=== PATIENT | male | born 1955 | race African-American/Black ===

== ENCOUNTER 2022-10-19 12:32 | Inpatient (IN) | payer BC, MEDICAID ==
[~2022-10-19] VITALS: Ht 182.9 cm; Wt 71.9 kg
[~2022-10-19 12:32] MED LIST: ACET-283 PO; ASPI-1497 PO; ATOR20TA65 PO; CALC0.253 PO; CLOP75TA33 PO; FAMO20TA8 PO; METO-385 PO; MINO2.5T2 PO; NIFE60TA64 PO
[2022-10-19] MEDS ORDERED: NITROGLYCERIN 0.4MG TABLET SL SL PRN ×2 (13:00→17:00)
[2022-10-19 13:11] LABS: BASOPHILS % 1.1 % (0.0-2.0); EOSINOPHILS % 2.8 % (0.0-5.0); HEMATOCRIT. 29.8 % (42.0-52.0); LYMPHOCYTES % 30.6 % (20.0-50.0); MEAN CORPUSCULAR HEMOGLOBIN 32.7 pg (28.0-32.0); MEAN CORPUSCULAR VOLUME 97.5 fL (80.0-94.0); MEAN PLATELET VOLUME 7.2 fl (7.4-10.4); MONOCYTES % 5.8 % (2.0-8.0); NEUTROPHILS % 59.7 % (40.0-76.0); PLATELET 216 x1000/uL (130-400); RED BLOOD CELL COUNT 3.05 mill/uL (4.7-6.1); RED CELL DISTRIBUTION WIDTH 13.6 % (11.6-14.6)
[2022-10-19 13:20] LABS: CHLORIDE 97 mEq/L (98-107)
[2022-10-19 13:22] LABS: PARTIAL THROMBOPLASTIN TIME 27.3 sec (23.4-31.0); PROTHROMBIN TIME 10.9 sec (9.6-11.0)
[2022-10-19] MEDS ORDERED: DEXTROSE 50% WATER 50ML SYRINGE IV PRN (17:00)
[2022-10-19] MEDS ORDERED: GUAIFENESIN 200MG/10ML SUGAR FREE UDC PO PRN (17:00)
[2022-10-19] MEDS ORDERED: IPRATROPIUM/ALBUTEROL 0.5-3(2.5)MG/3ML NEB HHN PRN (17:00)
[2022-10-19] MEDS ORDERED: ACETAMINOPHEN 325MG TABLET PO PRN ×2 (17:00)
[2022-10-19] MEDS ORDERED: ONDANSETRON HCL 4MG/2ML INJ IV PRN (17:00)
[2022-10-19] MEDS ORDERED: CLONIDINE 0.1MG TABLET PO PRN (17:00)
[2022-10-19] MEDS ORDERED: NALOXONE HCL 0.4MG/ML VIAL IV PRN (17:15)
[2022-10-19] MEDS ORDERED: ENOXAPARIN 30MG/0.3ML SYR SUBCUT SCH (18:00)
[2022-10-19 18:27] LABS: FOLIC ACID (FOLATE) SERUM 7.8 ng/mL (>5.38)
[2022-10-19 20:02] VITALS: BP 128/80
[2022-10-19 20:11] VITALS: BP 128/80
[2022-10-19] MEDS: FAMOTIDINE 20MG TABLET PO SCH (20:38)
[2022-10-19] MEDS: MAGNESIUM/ALUMINUM HYDROXIDE/SIMETHICONE 30ML UDC PO PRN (20:54)
[2022-10-19] MEDS: DOCUSATE SODIUM 100MG CAPSULE PO PRN (20:54)
[2022-10-19] MEDS ORDERED: HYDRALAZINE 20MG/ML VIAL IV PRN (21:15)
[2022-10-19] MEDS: CLOPIDOGREL 75MG TABLET PO SCH (21:39)
[2022-10-19] MEDS: AMLODIPINE 5MG TABLET PO SCH (21:39)
[2022-10-19] MEDS: ASPIRIN 81MG TABLET PO SCH (21:39)
[2022-10-19] MEDS: HYDROCODONE/ACETAMINOPHEN 5/325MG TABLET PO PRN (21:47)
[2022-10-20] VITALS (13 sets, daily range): BP systolic 121–152; BP diastolic 52–87
[2022-10-20 01:50] LABS: CREATINE KINASE MB FRACTION 2.9 ng/mL (0.5-3.6)
[2022-10-20 05:55] LABS: BASOPHILS % 0.8 % (0.0-2.0); EOSINOPHILS % 3.6 % (0.0-5.0); HEMATOCRIT. 26.8 % (42.0-52.0); HEMOGLOBIN. 9.2 g/dL (14.0-18.0); LYMPHOCYTES % 37.2 % (20.0-50.0); MEAN CORPUSCULAR VOLUME 95.6 fL (80.0-94.0); MEAN PLATELET VOLUME 7.3 fl (7.4-10.4); NEUTROPHILS % 51.4 % (40.0-76.0); PLATELET 193 x1000/uL (130-400); RED BLOOD CELL COUNT 2.81 mill/uL (4.7-6.1); RED CELL DISTRIBUTION WIDTH 13.5 % (11.6-14.6)
[2022-10-20 06:23] LABS: CHLORIDE 99 mEq/L (98-107)
[2022-10-20 06:37] LABS: CREATINE KINASE 549 IU/L (39-308); CREATINE KINASE MB FRACTION 2.4 ng/mL (0.5-3.6); HDL CHOLESTEROL 56 mg/dL (40-59); LDL CHOLESTEROL 112 mg/dL (5-100); PHOSPHORUS 3.9 mg/dL (2.5-4.9); T4 FREE 0.72 ng/dL (0.76-1.46)
[2022-10-20] MEDS: CLOPIDOGREL 75MG TABLET PO SCH (08:23)
[2022-10-20] MEDS: ASPIRIN 81MG TABLET PO SCH (08:24)
[2022-10-20] MEDS: AMLODIPINE 5MG TABLET PO SCH (09:00)
[2022-10-20] MEDS: ENOXAPARIN 80MG/0.8ML SYR SUBCUT SCH (10:02)
[2022-10-20] MEDS: MAGNESIUM/ALUMINUM HYDROXIDE/SIMETHICONE 30ML UDC PO PRN (10:09)
[2022-10-20] MEDS: DOCUSATE SODIUM 100MG CAPSULE PO PRN (10:09)
[2022-10-20] MEDS ORDERED: NA PHOS,M-B/NA PHOS,DI-BA ENEMA 118ML PR NR (13:45)
[2022-10-20] MEDS ORDERED: ALBUTEROL (0.083%) 2.5MG/3ML NEB HHN PRN (13:45)
[2022-10-20] MEDS ORDERED: IPRATROPIUM BROMIDE (0.02%) 0.5MG/2.5ML NEB HHN PRN (13:45)
[2022-10-20 16:19] LABS: CREATINE KINASE MB FRACTION 2.4 ng/mL (0.5-3.6)
[2022-10-20 18:08] LABS: HEPATITIS B SURFACE ANTIGEN NEGATIVE
[2022-10-20] MEDS: FAMOTIDINE 20MG TABLET PO SCH (20:18)
[2022-10-20] MEDS: ATORVASTATIN CALCIUM 20MG TABLET PO SCH (20:18)
[2022-10-20] MEDS: HYDROCODONE/ACETAMINOPHEN 5/325MG TABLET PO PRN (20:25)
[2022-10-20] MEDS ORDERED: ATORVASTATIN CALCIUM 20MG TABLET PO SCH (21:00)
[2022-10-21 00:05] VITALS: BP 150/92
[2022-10-21] MEDS: HYDROCODONE/ACETAMINOPHEN 5/325MG TABLET PO PRN ×3 (02:48→20:09)
[2022-10-21 04:00] VITALS: BP 124/81
[2022-10-21] MEDS ORDERED: EPOETIN ALFA-EPBX 10,000 UNIT/ML VIAL SUBCUT NR (04:45)
[2022-10-21] MEDS ORDERED: EPOETIN ALFA-EPBX 4,000 UNIT/ML VIAL SUBCUT NR (05:00)
[2022-10-21 06:36] LABS: BASOPHILS % 0.9 % (0.0-2.0); EOSINOPHILS % 2.9 % (0.0-5.0); HEMATOCRIT. 25.5 % (42.0-52.0); HEMOGLOBIN. 8.8 g/dL (14.0-18.0); LYMPHOCYTES % 37.1 % (20.0-50.0); MEAN CORPUSCULAR HEMOGLOBIN 32.7 pg (28.0-32.0); MEAN CORPUSCULAR VOLUME 94.6 fL (80.0-94.0); MEAN PLATELET VOLUME 7.5 fl (7.4-10.4); MONOCYTES % 7.6 % (2.0-8.0); NEUTROPHILS % 51.5 % (40.0-76.0); PLATELET 185 x1000/uL (130-400); RED CELL DISTRIBUTION WIDTH 13.5 % (11.6-14.6)
[2022-10-21 08:00] VITALS: BP 158/92
[2022-10-21] MEDS: ENOXAPARIN 80MG/0.8ML SYR SUBCUT SCH (09:04)
[2022-10-21] MEDS: ASPIRIN 81MG TABLET PO SCH (09:05)
[2022-10-21] MEDS: DOCUSATE SODIUM 100MG CAPSULE PO PRN (09:05)
[2022-10-21] MEDS: AMLODIPINE 5MG TABLET PO SCH ×2 (09:05→20:05)
[2022-10-21] MEDS: CLOPIDOGREL 75MG TABLET PO SCH (10:42)
[2022-10-21 12:00] VITALS: BP 131/86
[2022-10-21 16:00] VITALS: BP 129/87
[2022-10-21] MEDS: CYANOCOBALAMIN 1000MCG/ML VIAL IM SCH (16:07)
[2022-10-21 20:00] VITALS: BP 136/80
[2022-10-21] MEDS: ATORVASTATIN CALCIUM 20MG TABLET PO SCH (20:05)
[2022-10-21] MEDS: FAMOTIDINE 20MG TABLET PO SCH (20:05)
[2022-10-22] VITALS (9 sets, daily range): BP systolic 129–155; BP diastolic 74–85
[2022-10-22 06:25] LABS: BASOPHILS % 0.7 % (0.0-2.0); HEMATOCRIT. 27.3 % (42.0-52.0); HEMOGLOBIN. 9.3 g/dL (14.0-18.0); LYMPHOCYTES % 35.1 % (20.0-50.0); MEAN CORPUSCULAR HEMOGLOBIN 32.3 pg (28.0-32.0); MEAN CORPUSCULAR VOLUME 94.6 fL (80.0-94.0); MEAN PLATELET VOLUME 7.7 fl (7.4-10.4); MONOCYTES % 9.2 % (2.0-8.0); PLATELET 190 x1000/uL (130-400); RED BLOOD CELL COUNT 2.88 mill/uL (4.7-6.1); RED CELL DISTRIBUTION WIDTH 13.6 % (11.6-14.6)
[2022-10-22] MEDS: HYDROCODONE/ACETAMINOPHEN 5/325MG TABLET PO PRN ×3 (07:08→22:05)
[2022-10-22 07:34] LABS: CHLORIDE 102 mEq/L (98-107)
[2022-10-22 07:43] LABS: PHOSPHORUS 3.8 mg/dL (2.5-4.9)
[2022-10-22] MEDS: CYANOCOBALAMIN 1000MCG/ML VIAL IM SCH (09:01)
[2022-10-22] MEDS: ASPIRIN 81MG TABLET PO SCH (15:47)
[2022-10-22] MEDS: AMLODIPINE 5MG TABLET PO SCH ×2 (15:47→22:03)
[2022-10-22] MEDS: CLOPIDOGREL 75MG TABLET PO SCH (15:48)
[2022-10-22] MEDS: ENOXAPARIN 80MG/0.8ML SYR SUBCUT SCH (15:49)
[2022-10-22] MEDS: DOCUSATE SODIUM 100MG CAPSULE PO PRN (15:50)
[2022-10-22] MEDS: HYDRALAZINE HCL 25MG TABLET PO SCH ×2 (15:51→22:04)
[2022-10-22] MEDS: FAMOTIDINE 20MG TABLET PO SCH (22:03)
[2022-10-22] MEDS: ATORVASTATIN CALCIUM 20MG TABLET PO SCH (22:03)
[2022-10-23] VITALS: BP 134/80
[2022-10-23 04:00] VITALS: BP 127/72
[2022-10-23 06:25] LABS: BASOPHILS % 0.6 % (0.0-2.0); EOSINOPHILS % 2.7 % (0.0-5.0); HEMATOCRIT. 25.4 % (42.0-52.0); HEMOGLOBIN. 8.7 g/dL (14.0-18.0); MEAN CORPUSCULAR HEMOGLOBIN 32.5 pg (28.0-32.0); MEAN CORPUSCULAR VOLUME 94.3 fL (80.0-94.0); MEAN PLATELET VOLUME 7.9 fl (7.4-10.4); MONOCYTES % 8.5 % (2.0-8.0); NEUTROPHILS % 55.2 % (40.0-76.0); PLATELET 180 x1000/uL (130-400); RED BLOOD CELL COUNT 2.69 mill/uL (4.7-6.1); RED CELL DISTRIBUTION WIDTH 13.6 % (11.6-14.6)
[2022-10-23 08:00] VITALS: BP 153/85
[2022-10-23] MEDS: ENOXAPARIN 80MG/0.8ML SYR SUBCUT SCH (09:00)
[2022-10-23 12:00] VITALS: BP 156/86
[2022-10-23] MEDS: CLOPIDOGREL 75MG TABLET PO SCH (12:40)
[2022-10-23] MEDS: CYANOCOBALAMIN 1000MCG/ML VIAL IM SCH (12:40)
[2022-10-23] MEDS: ASPIRIN 81MG TABLET PO SCH (12:40)
[2022-10-23] MEDS: HYDROCODONE/ACETAMINOPHEN 5/325MG TABLET PO PRN ×2 (12:42→20:44)
[2022-10-23] MEDS: HYDRALAZINE HCL 25MG TABLET PO SCH ×2 (12:42→21:33)
[2022-10-23] MEDS: DOCUSATE SODIUM 100MG CAPSULE PO PRN (12:43)
[2022-10-23] MEDS: AMLODIPINE 5MG TABLET PO SCH ×2 (12:43→20:43)
[2022-10-23 16:00] VITALS: BP 155/81
[2022-10-23 20:00] VITALS: BP 136/82
[2022-10-23] MEDS: FAMOTIDINE 20MG TABLET PO SCH (20:43)
[2022-10-23] MEDS: ATORVASTATIN CALCIUM 20MG TABLET PO SCH (20:46)
[2022-10-24] VITALS (10 sets, daily range): BP systolic 122–160; BP diastolic 70–94
[2022-10-24] MEDS: HYDRALAZINE HCL 25MG TABLET PO SCH ×3 (05:01→21:48)
[2022-10-24 05:58] LABS: BASOPHILS % 0.5 % (0.0-2.0); EOSINOPHILS % 2.8 % (0.0-5.0); HEMATOCRIT. 26.6 % (42.0-52.0); LYMPHOCYTES % 24.1 % (20.0-50.0); MEAN CORPUSCULAR HEMOGLOBIN 32.4 pg (28.0-32.0); MEAN CORPUSCULAR VOLUME 95.9 fL (80.0-94.0); MEAN PLATELET VOLUME 7.6 fl (7.4-10.4); NEUTROPHILS % 64.6 % (40.0-76.0); PLATELET 190 x1000/uL (130-400); RED BLOOD CELL COUNT 2.78 mill/uL (4.7-6.1); RED CELL DISTRIBUTION WIDTH 14.1 % (11.6-14.6)
[2022-10-24] MEDS: AMLODIPINE 5MG TABLET PO SCH ×2 (08:53→21:48)
[2022-10-24] MEDS: CYANOCOBALAMIN 1000MCG/ML VIAL IM SCH (08:53)
[2022-10-24] MEDS: ASPIRIN 81MG TABLET PO SCH (09:00)
[2022-10-24] MEDS: CLOPIDOGREL 75MG TABLET PO SCH (09:00)
[2022-10-24] MEDS: ENOXAPARIN 80MG/0.8ML SYR SUBCUT SCH (09:00)
[2022-10-24] MEDS ORDERED: NICARDIPINE 100MCG/ML 10ML VIAL (CATH LAB) IV ONE (12:00)
[2022-10-24] MEDS ORDERED: NITROGLYCERIN 50MCG/ML 10ML VIAL (CATH LAB) IV ONE (12:00)
[2022-10-24] MEDS: HYDROCODONE/ACETAMINOPHEN 5/325MG TABLET PO PRN (13:05)
[2022-10-24] MEDS ORDERED: IODIXANOL 320MG/ML 100 ML BOTTLE IV ONE (18:03)
[2022-10-24] MEDS ORDERED: MIDAZOLAM HCL 2 MG/2 ML VIAL ONE (18:03)
[2022-10-24] MEDS ORDERED: HEPARIN 1000 UNITS/ML 10ML ONE (18:03)
[2022-10-24] MEDS ORDERED: FENTANYL CITRATE/PF 50MCG/ML 2ML VIAL ONE (18:03)
[2022-10-24] MEDS ORDERED: LIDOCAINE HCL/PF 1% 10 MG/ML 5ML VIAL ONE (18:03)
[2022-10-24] MEDS ORDERED: ATROPINE SULFATE 1MG/10ML SYR IV PRN (19:00)
[2022-10-24] MEDS: ATORVASTATIN CALCIUM 20MG TABLET PO SCH (21:48)
[2022-10-24] MEDS: FAMOTIDINE 20MG TABLET PO SCH (21:48)
[2022-10-25] VITALS: BP 151/74
[2022-10-25 04:00] VITALS: BP 135/79
[2022-10-25] MEDS: HYDRALAZINE HCL 25MG TABLET PO SCH ×2 (05:01→13:35)
[2022-10-25 08:00] VITALS: BP 174/81
[2022-10-25] MEDS: CYANOCOBALAMIN 1000MCG/ML VIAL IM SCH (09:48)
[2022-10-25] MEDS: ASPIRIN 81MG TABLET PO SCH ×2 (09:48→09:59)
[2022-10-25] MEDS: CLOPIDOGREL 75MG TABLET PO SCH ×2 (09:48→09:58)
[2022-10-25] MEDS: ENOXAPARIN 80MG/0.8ML SYR SUBCUT SCH ×2 (09:49→09:59)
[2022-10-25] MEDS: AMLODIPINE 5MG TABLET PO SCH (09:52)
[2022-10-25] MEDS ORDERED: HYDROCODONE/ACETAMINOPHEN 5/325MG TABLET PO NR (11:30)
[2022-10-25 12:00] VITALS: BP 207/138
[2022-10-25] MEDS ORDERED: HYDRALAZINE HCL 50MG TABLET PO NR (12:15)
[2022-10-25 13:07] VITALS: BP 164/85
== END 2022-10-25 13:20 | disposition home or self-care (01) | DRG 280 ==
LOC: ER 12:32 → 7WST 15:46
PROVIDERS: ADMIT Internal Medicine; ATTEND Internal Medicine
PROC: 5A1D70Z Performance of Urinary Filtration, Intermittent, Less than 6 Hours Per Day (ICD-10-PCS; 2022-10-20)
PROC: 5A1D70Z Performance of Urinary Filtration, Intermittent, Less than 6 Hours Per Day (ICD-10-PCS; 2022-10-22)
PROC: 4A023N7 Measurement of Cardiac Sampling and Pressure, Left Heart, Percutaneous Approach (ICD-10-PCS; principal; 2022-10-24)
PROC: B2111ZZ Fluoroscopy of Multiple Coronary Arteries using Low Osmolar Contrast (ICD-10-PCS; 2022-10-24)
PROC: B2151ZZ Fluoroscopy of Left Heart using Low Osmolar Contrast (ICD-10-PCS; 2022-10-24)
PROC: 5A1D70Z Performance of Urinary Filtration, Intermittent, Less than 6 Hours Per Day (ICD-10-PCS; 2022-10-24)
DX: I21.4 Non-ST elevation (NSTEMI) myocardial infarction (principal); N18.6 End stage renal disease; I12.0 Hypertensive chronic kidney disease with stage 5 chronic kidney disease or end stage renal disease; I25.10 Atherosclerotic heart disease of native coronary artery without angina pectoris; D63.8 Anemia in other chronic diseases classified elsewhere; N40.0 Benign prostatic hyperplasia without lower urinary tract symptoms; E78.5 Hyperlipidemia, unspecified; Z99.2 Dependence on renal dialysis; Z79.899 Other long term (current) drug therapy; Z86.73 Personal history of transient ischemic attack (TIA), and cerebral infarction without residual deficits; Z98.61 Coronary angioplasty status
CPT/HCPCS: 36415; 71045; 80048; 80053; 80061; 82550; 82553; 82607; 82746; 83036; 83540; 83550; 83735; 83880; 84100; 84439; 84443; 84484; 85025; 86705; 86709; 86803; 87340; 90935; 93005; 93306; 93458; 93970; 99285; C1769; C1887; C1893; J0360; J0885; J1644; J1650; J2250; J3010; J3420; J3490; Q9967

== ENCOUNTER 2022-11-08 15:10 | Emergency (ER) | payer MEDICARE, MEDICAID ==
[~2022-11-08] VITALS: Ht 182.9 cm; Wt 68.0 kg
[2022-11-08 15:42] LABS: HEMATOCRIT. 29.2 % (42.0-52.0); MEAN CORPUSCULAR HEMOGLOBIN 32.5 pg (28.0-32.0); MEAN CORPUSCULAR VOLUME 94.8 fL (80.0-94.0); MEAN PLATELET VOLUME 7.2 fl (7.4-10.4); PLATELET 230 x1000/uL (130-400); RED BLOOD CELL COUNT 3.08 mill/uL (4.7-6.1); RED CELL DISTRIBUTION WIDTH 14.6 % (11.6-14.6)
[2022-11-08 15:48] LABS: CHLORIDE 98 mEq/L (98-107)
[2022-11-08 15:55] LABS: ETHANOL BLOOD < 10 mg/dL
[2022-11-08 16:16] LABS: PLATELET ESTIMATE NORMAL
[2022-11-08 18:00] VITALS: BP 152/90
== END 2022-11-08 19:56 | disposition home or self-care (01) ==
LOC: ER 15:10
DX: K59.00 Constipation, unspecified (principal); I10 Essential (primary) hypertension; Z86.73 Personal history of transient ischemic attack (TIA), and cerebral infarction without residual deficits; F14.10 Cocaine abuse, uncomplicated
CPT/HCPCS: 36415; 74176; 80053; 80320; 85025; 99284; G0480

== ENCOUNTER 2024-03-28 17:32 | Emergency (ER) | payer MEDICARE, MEDICAID ==
[~2024-03-28] VITALS: Ht 188 cm; Wt 62.0 kg
[~2024-03-28 17:32] MED LIST changes: -ACET-283 PO; +APIX2.5T PO; -ASPI-1497 PO; -ATOR20TA65 PO; +ATOR40TA70 PO; -CALC0.253 PO; +DOCU-150 PO; +LACT10SO3 PO; +LISI-186 PO; -MINO2.5T2 PO; -NIFE60TA64 PO; +TAMS-11 PO
[2024-03-28 17:35] VITALS: O2SAT 100
[2024-03-28 18:59] LABS: BG BASE EXCESS 4.1 mmol/L (-2.0-2.0); BG DEOXYHEMOGLOBIN 0.4 % (0.0-5.0); BG FRACTION INSPIRED OXYGEN 100; BG HCO3 ACT 28.5 mmol/L (22.0-26.0); BG METHEMOGLOBIN 0.3 % (0.0-1.5); BG OXYGEN SATURATION 99.6 % (92.0-98.5); BG OXYHEMOGLOBIN 99.3 % (94.0-97.0); BG PCO2 42.2 mmHg (35.0-45.0); BG PH 7.448 (7.350-7.450); BG PO2 195.9 mmHg (75.0-100.0); BG SAMPLE SITE RIGHT RADIAL; BG TOTAL HEMOGLOBIN 12.5 g/dL (12.0-18.0); BG VENT MODE MASK - NRB
[2024-03-28 19:21] VITALS: BP 134/81; PULSE 74; RESP 13; TEMP 36.66960; O2SAT 100
[2024-03-28 19:22] LABS: BASOPHILS % 0.8 % (0.0-2.0); EOSINOPHILS % 0.9 % (0.0-5.0); HEMATOCRIT. 29.3 % (42.0-52.0); HEMOGLOBIN. 9.9 g/dL (14.0-18.0); LYMPHOCYTES % 19.5 % (20.0-50.0); MEAN CORPUSCULAR HEMOGLOBIN 33.6 pg (28.0-32.0); MEAN CORPUSCULAR HGB CONC 33.8 g/dL (31.0-37.0); MEAN CORPUSCULAR VOLUME 99.6 fL (80.0-94.0); MEAN PLATELET VOLUME 7.5 fl (7.4-10.4); MONOCYTES % 6.2 % (2.0-8.0); NEUTROPHILS % 72.6 % (40.0-76.0); PLATELET 203 x1000/uL (130-400); RED BLOOD CELL COUNT 2.94 mill/uL (4.7-6.1); RED CELL DISTRIBUTION WIDTH 15.3 % (11.6-14.6); WHITE BLOOD COUNT 7.7 x1000/uL (4.5-11.0)
[2024-03-28 19:29] LABS: CHLORIDE 95 mEq/L (98-107); POTASSIUM 4.6 mEq/L (3.5-5.1); SODIUM 133 mEq/L (136-145)
[2024-03-28 19:30] LABS: CALCIUM 9.1 mg/dL (8.7-10.4); CARBON DIOXIDE 32 mEq/L (21-32)
[2024-03-28 19:35] LABS: GLUCOSE 106 mg/dL (70-105); UREA NITROGEN BLOOD 14 mg/dL (9-23)
[2024-03-28 19:36] LABS: AMMONIA < 17 uMol/L (<32); ETHANOL BLOOD 230 mg/dL (<10)
[2024-03-28 19:37] LABS: ALANINE AMINOTRANSFERASE 12 IU/L (10-49); ALBUMIN 4.3 g/dL (3.2-4.8); ASPARTATE AMINOTRANSFERASE 24 IU/L (<34); BILIRUBIN TOTAL 0.5 mg/dL (0.1-1.0); PROTEIN TOTAL 7.2 g/dL (6.0-8.3)
[2024-03-28 19:38] LABS: PARTIAL THROMBOPLASTIN TIME 23.7 sec (23.4-31.0); PROTHROMBIN TIME 11.6 sec (9.6-11.0)
[2024-03-28 19:44] LABS: TROPONIN I HIGH SENSITIVITY 105 ng/L (3.0-53)
[2024-03-28] MEDS ORDERED: ASPIRIN 325MG EC TABLET PO ONE (20:30)
[2024-03-28] MEDS ORDERED: ONDANSETRON HCL 4MG/2ML INJ IV PRN (21:00)
[2024-03-28] MEDS ORDERED: MAGNESIUM/ALUMINUM HYDROXIDE/SIMETHICONE 30ML UDC PO PRN (21:00)
[2024-03-28] MEDS ORDERED: ACETAMINOPHEN 650MG SUPP PR PRN (21:00)
[2024-03-28] MEDS ORDERED: GUAIFENESIN 200MG/10ML SUGAR FREE UDC PO PRN (21:00)
[2024-03-28] MEDS ORDERED: DOCUSATE SODIUM 100MG CAPSULE PO PRN (21:00)
[2024-03-28] MEDS ORDERED: IPRATROPIUM/ALBUTEROL 0.5-3(2.5)MG/3ML NEB HHN PRN (21:00)
[2024-03-28] MEDS ORDERED: ACETAMINOPHEN 325MG TABLET PO PRN ×2 (21:00)
[2024-03-28] MEDS ORDERED: LORAZEPAM 4MG/ML INJ IV PRN (21:00)
[2024-03-28 21:06] LABS: IRON 59 ug/dL (65-175)
[2024-03-28 21:09] LABS: PHOSPHORUS 4.7 mg/dL (2.5-4.9); TOTAL IRON BINDING CAPACITY 217 ug/dl (250-425)
[2024-03-28 21:12] LABS: FERRITIN 1002 ng/mL (22-322); FOLIC ACID (FOLATE) SERUM 9.62 ng/mL (>5.38); VITAMIN B12 SERUM 409 pg/mL (211-911)
[2024-03-28] MEDS ORDERED: FOLIC ACID 1 MG, THIAMINE HCL 100 MG, MVI, ADULT NO.1 10 ML in DEXTROSE 5% WATER 1,000 ML IV NR (22:00)
[2024-03-29] MEDS ORDERED: IOHEXOL-350 100 ML BOTTLE ONE (07:16)
[2024-03-29] MEDS ORDERED: FOLIC ACID 1MG TABLET PO SCH (09:00)
[2024-03-29] MEDS ORDERED: CLOPIDOGREL 75MG TABLET PO SCH (09:00)
[2024-03-29] MEDS ORDERED: LISINOPRIL 5MG TABLET PO SCH (09:00)
[2024-03-29] MEDS ORDERED: FAMOTIDINE 20MG TABLET PO SCH (09:00)
[2024-03-29] MEDS ORDERED: APIXABAN 2.5 MG TABLET PO SCH (09:00)
[2024-03-29] MEDS ORDERED: TAMSULOSIN HCL 0.4MG SR CAPSULE PO SCH (09:00)
[2024-03-29] MEDS ORDERED: MULTIVITAMINS,THER W-MINERALS TABLET PO SCH (09:00)
[2024-03-29] MEDS ORDERED: ATORVASTATIN CALCIUM 40MG TABLET PO SCH (21:00)
== END 2024-03-28 22:07 | disposition left against medical advice (07) ==
LOC: ER 17:32 → EDBEDREQTM 21:07 → EDBEDREQSVC 21:07 → EDBEDREQ 21:07 → ER 22:07
DX: R41.82 Altered mental status, unspecified (principal); R79.89 Other specified abnormal findings of blood chemistry; F10.129 Alcohol abuse with intoxication, unspecified; I10 Essential (primary) hypertension; F14.10 Cocaine abuse, uncomplicated; I25.2 Old myocardial infarction; Z86.73 Personal history of transient ischemic attack (TIA), and cerebral infarction without residual deficits; Z79.899 Other long term (current) drug therapy; Y90.7 Blood alcohol level of 200-239 mg/100 ml
CPT/HCPCS: 80053; 80320; 82140; 82607; 82728; 82746; 82962; 83540; 83550; 83735; 84100; 85025; 85610; 85730; 86850; 86900; 86901; 84484; 36415; 71045; 70496; 70498; 70450; 94640; 82805; 82375; 93005; 99285; 36600; Q9967; J3490 ×2; J3411; J7070; G0480

== ENCOUNTER 2025-03-08 13:39 | Inpatient (IN) | payer MEDICARE, MEDICAID ==
[~2025-03-08] VITALS: Ht 182.9 cm; Wt 75.3 kg
[~2025-03-08 13:39] MED LIST changes: +AMI2 PO; +CLON0.1T PO; -CLOP75TA33 PO; -DOCU-150 PO; +DOCU250C14 PO; -FAMO20TA8 PO; +FLEPEDE PR; +LACT-390 PO; -LACT10SO3 PO; -LISI-186 PO; -METO-385 PO; +SENN-362 PO; -TAMS-11 PO; +TAMS-54 PO; +TOPUD PO
[2025-03-08 13:42] VITALS: O2SAT 98
[2025-03-08 15:46] LABS: BASOPHILS % 0.2 % (0.0-2.0); EOSINOPHILS % 1.2 % (0.0-5.0); HEMATOCRIT. 30.8 % (42.0-52.0); HEMOGLOBIN. 10.2 g/dL (14.0-18.0); LYMPHOCYTES % 13.0 % (20.0-50.0); MEAN PLATELET VOLUME 7.1 fl (7.4-10.4); MONOCYTES % 7.5 % (2.0-8.0); NEUTROPHILS % 78.1 % (40.0-76.0); PLATELET 163 x1000/uL (130-400); RED BLOOD CELL COUNT 3.34 mill/uL (4.7-6.1); RED CELL DISTRIBUTION WIDTH 18.6 % (11.6-14.6)
[2025-03-08] MEDS: MORPHINE SULFATE 4 MG/ML INJ (FOR IV/IM USE) IV ONE (15:58)
[2025-03-08] MEDS: PANTOPRAZOLE SODIUM 40 MG/VIAL IV ONE (15:59)
[2025-03-08] MEDS: ONDANSETRON HCL 4MG/2ML INJ IV ONE (15:59)
[2025-03-08 16:01] LABS: UREA NITROGEN BLOOD 20 mg/dL (9-23)
[2025-03-08 16:17] LABS: CREATININE 8.0 mg/dL (0.6-1.3)
[2025-03-08 16:18] LABS: TROPONIN I HIGH SENSITIVITY 134 ng/L (3.0-53)
[2025-03-08 18:06] LABS: TROPONIN I HIGH SENSITIVITY 145 ng/L (3.0-53)
[2025-03-08 20:00] VITALS: BP 131/73; PULSE 97; RESP 18; RESP 19; TEMP 36.4; TEMP 36.4736; O2SAT 96
[2025-03-08] MEDS ORDERED: PREG50CA64 PO (20:15)
[2025-03-08] MEDS ORDERED: METO-385 PO (20:15)
[2025-03-08] MEDS ORDERED: CLOP75TA33 PO (20:15)
[2025-03-08] MEDS ORDERED: ASPI-1160 PO (20:15)
[2025-03-08] MEDS ORDERED: MIRT-89 PO (20:15)
[2025-03-08] MEDS ORDERED: ONDANSETRON HCL 4MG/2ML INJ IV PRN (20:30)
[2025-03-08] MEDS ORDERED: ACETAMINOPHEN 325MG TABLET PO PRN ×2 (20:30)
[2025-03-08] MEDS ORDERED: IPRATROPIUM/ALBUTEROL 0.5-3(2.5)MG/3ML NEB HHN PRN (20:30)
[2025-03-08] MEDS ORDERED: NALOXONE HCL 0.4MG/ML VIAL IV PRN (20:45)
[2025-03-08] MEDS: CEFTRIAXONE 1GM/50ML 50 ML IV SCH (22:09)
[2025-03-08] MEDS: METRONIDAZOLE 500 MG PREMIX 100 ML IV SCH (22:09)
[2025-03-08] MEDS ORDERED: BENZONATATE 100MG CAPSULE PO PRN (22:30)
[2025-03-09] VITALS: BP 100/58; PULSE 79; RESP 19; TEMP 36.6; O2SAT 96
[2025-03-09] MEDS: DOCUSATE SODIUM 100MG CAPSULE PO PRN (03:37)
[2025-03-09] MEDS: GUAIFENESIN/DM 600MG/30MG ER TAB 12HR PO PRN (03:37)
[2025-03-09 04:00] VITALS: BP 135/80; PULSE 74; RESP 18; TEMP 36.3; O2SAT 98
[2025-03-09] MEDS: HYDROCODONE/ACETAMINOPHEN 5/325MG TABLET PO PRN (07:09)
[2025-03-09 08:00] VITALS: BP 119/74; PULSE 77; RESP 15; TEMP 36.5; O2SAT 93
[2025-03-09 08:02] LABS: UREA NITROGEN BLOOD 26 mg/dL (9-23)
[2025-03-09 08:04] LABS: ASPARTATE AMINOTRANSFERASE 14 IU/L (<34); BILIRUBIN TOTAL 0.7 mg/dL (0.1-1.0); PROTEIN TOTAL 6.3 g/dL (6.0-8.3)
[2025-03-09 08:10] LABS: CREATININE 9.9 mg/dL (0.6-1.3)
[2025-03-09 08:23] LABS: BASOPHILS % 0.3 % (0.0-2.0); EOSINOPHILS % 2.8 % (0.0-5.0); HEMATOCRIT. 31.1 % (42.0-52.0); HEMOGLOBIN. 10.3 g/dL (14.0-18.0); LYMPHOCYTES % 16.8 % (20.0-50.0); MEAN PLATELET VOLUME 7.4 fl (7.4-10.4); MONOCYTES % 9.4 % (2.0-8.0); NEUTROPHILS % 70.7 % (40.0-76.0); PLATELET 155 x1000/uL (130-400); RED BLOOD CELL COUNT 3.39 mill/uL (4.7-6.1); RED CELL DISTRIBUTION WIDTH 18.5 % (11.6-14.6)
[2025-03-09 11:56] LABS: HEPATITIS A AB IGM NEGATIVE (Negative)
[2025-03-09 11:57] LABS: HEPATITIS B CORE AB IGM NEGATIVE (Negative); HEPATITIS C AB NON REACTIVE (Neg) (Negative)
[2025-03-09 12:00] VITALS: BP 131/69; PULSE 63; RESP 14; TEMP 36.3; O2SAT 95
[2025-03-09 16:00] VITALS: BP 129/84; PULSE 87; RESP 18; TEMP 36.3; O2SAT 99
[2025-03-09] MEDS: LACTULOSE 20G/30ML UDC PO PRN (17:57)
[2025-03-09] MEDS: APIXABAN 2.5 MG TABLET PO SCH (21:08)
[2025-03-09] MEDS: ATORVASTATIN CALCIUM 40MG TABLET PO SCH (21:08)
[2025-03-10] VITALS (12 sets, daily range): BP systolic 143–176; BP diastolic 74–100; PULSE 70–94; RESP 17–20; TEMP 35.8362–36.3; O2SAT 96–100
[2025-03-10] MEDS: ASPIRIN 81MG EC TABLET PO SCH (09:17)
[2025-03-10] MEDS: AMIODARONE 200MG TABLET PO SCH (09:18)
[2025-03-10 09:27] LABS: BASOPHILS % 0.4 % (0.0-2.0); EOSINOPHILS % 4.0 % (0.0-5.0); HEMATOCRIT. 29.2 % (42.0-52.0); HEMOGLOBIN. 9.7 g/dL (14.0-18.0); LYMPHOCYTES % 28.0 % (20.0-50.0); MEAN PLATELET VOLUME 7.5 fl (7.4-10.4); MONOCYTES % 10.8 % (2.0-8.0); NEUTROPHILS % 56.8 % (40.0-76.0); PLATELET 161 x1000/uL (130-400); RED BLOOD CELL COUNT 3.20 mill/uL (4.7-6.1); RED CELL DISTRIBUTION WIDTH 18.2 % (11.6-14.6)
[2025-03-10 09:42] LABS: TRIGLYCERIDE 48 mg/dL (0-150); UREA NITROGEN BLOOD 38 mg/dL (9-23)
[2025-03-10 09:43] LABS: LDL CHOLESTEROL 44 mg/dL (5-100)
[2025-03-10 09:44] LABS: ASPARTATE AMINOTRANSFERASE 10 IU/L (<34); BILIRUBIN TOTAL 0.4 mg/dL (0.1-1.0)
[2025-03-10 09:45] LABS: PROTEIN TOTAL 6.3 g/dL (6.0-8.3)
[2025-03-10 11:06] LABS: CREATININE 10.9 mg/dL (0.6-1.3)
[2025-03-10 11:07] LABS: TROPONIN I HIGH SENSITIVITY 118 ng/L (3.0-53)
[2025-03-10] MEDS: TAMSULOSIN HCL 0.4MG SR CAPSULE PO SCH (13:49)
[2025-03-10] MEDS: AMLODIPINE 5MG TABLET PO SCH (21:16)
[2025-03-11] VITALS: BP 140/77; PULSE 74; RESP 19; TEMP 36.3; O2SAT 97
[2025-03-11 04:00] VITALS: BP 139/62; PULSE 69; RESP 20; TEMP 36.1; O2SAT 97
[2025-03-11] MEDS: METRONIDAZOLE 500MG TABLET PO SCH (06:59)
[2025-03-11 08:00] VITALS: BP 138/85; PULSE 84; RESP 16; TEMP 35.9; O2SAT 96
[2025-03-11 08:35] LABS: BASOPHILS % 0.6 % (0.0-2.0); EOSINOPHILS % 4.7 % (0.0-5.0); HEMATOCRIT. 33.1 % (42.0-52.0); HEMOGLOBIN. 11.0 g/dL (14.0-18.0); LYMPHOCYTES % 26.8 % (20.0-50.0); MEAN PLATELET VOLUME 7.3 fl (7.4-10.4); MONOCYTES % 7.4 % (2.0-8.0); NEUTROPHILS % 60.5 % (40.0-76.0); PLATELET 199 x1000/uL (130-400); RED BLOOD CELL COUNT 3.64 mill/uL (4.7-6.1); RED CELL DISTRIBUTION WIDTH 18.2 % (11.6-14.6)
[2025-03-11 08:42] LABS: INR 1.1
[2025-03-11 08:53] LABS: UREA NITROGEN BLOOD 26 mg/dL (9-23)
[2025-03-11 09:01] LABS: FOLIC ACID (FOLATE) SERUM 5.51 ng/mL (>5.38); VITAMIN B12 SERUM 477 pg/mL (211-911)
[2025-03-11 09:02] LABS: CREATININE 8.4 mg/dL (0.6-1.3)
[2025-03-11] MEDS: AMIODARONE 200MG TABLET PO SCH (10:13)
[2025-03-11 12:00] VITALS: BP 147/98; PULSE 80; RESP 16; TEMP 36.1; O2SAT 96
[2025-03-11 16:00] VITALS: BP 141/98; PULSE 82; RESP 18; TEMP 35.9; O2SAT 100
[2025-03-11] MEDS: POLYETHYLENE GLYCOL 3350 (17GM) 1 DOSE PACK PO NR (17:25)
[2025-03-11] MEDS: DOCUSATE SODIUM 100MG CAPSULE PO SCH (21:18)
[2025-03-11] MEDS: SENNOSIDES 8.6MG TABLET PO SCH (21:24)
[2025-03-11] MEDS ORDERED: LACTULOSE 20G/30ML UDC PO PRN (22:30)
[2025-03-11] MEDS: MORPHINE SULFATE 2 MG/ML INJ (NOT FOR IM USE) IV PRN (23:38)
[2025-03-11] MEDS: CLONIDINE 0.1MG TABLET PO PRN (23:39)
[2025-03-12] MEDS: POLYETHYLENE GLYCOL-ELECTROLYTE 4000ML PO SCH (04:12)
[2025-03-12] MEDS: TRAMADOL 50MG TABLET PO PRN (04:22)
[2025-03-12 08:36] LABS: BASOPHILS % 0.7 % (0.0-2.0); EOSINOPHILS % 3.4 % (0.0-5.0); HEMATOCRIT. 30.7 % (42.0-52.0); HEMOGLOBIN. 10.1 g/dL (14.0-18.0); LYMPHOCYTES % 31.4 % (20.0-50.0); MEAN PLATELET VOLUME 7.3 fl (7.4-10.4); MONOCYTES % 8.7 % (2.0-8.0); NEUTROPHILS % 55.8 % (40.0-76.0); PLATELET 195 x1000/uL (130-400); RED BLOOD CELL COUNT 3.37 mill/uL (4.7-6.1); RED CELL DISTRIBUTION WIDTH 18.4 % (11.6-14.6)
[2025-03-12 08:56] LABS: UREA NITROGEN BLOOD 30.0 mg/dL (9-23)
[2025-03-12 09:34] LABS: CREATININE 10.5 mg/dL (0.6-1.3)
[2025-03-12 16:00] VITALS: PULSE 79; RESP 18; TEMP 36.7; O2SAT 98
[2025-03-12 20:00] VITALS: BP 141/80; PULSE 77; RESP 18; TEMP 36.4; O2SAT 99
[2025-03-13] VITALS (12 sets, daily range): BP systolic 129–164; BP diastolic 69–109; PULSE 76–144; RESP 16–19; TEMP 36.16956–36.8; O2SAT 97–99
[2025-03-13 08:57] LABS: BASOPHILS % 1.0 % (0.0-2.0); EOSINOPHILS % 3.0 % (0.0-5.0); HEMATOCRIT. 31.1 % (42.0-52.0); HEMOGLOBIN. 10.2 g/dL (14.0-18.0); LYMPHOCYTES % 34.7 % (20.0-50.0); MEAN PLATELET VOLUME 7.1 fl (7.4-10.4); MONOCYTES % 9.2 % (2.0-8.0); NEUTROPHILS % 52.1 % (40.0-76.0); PLATELET 191 x1000/uL (130-400); RED BLOOD CELL COUNT 3.42 mill/uL (4.7-6.1); RED CELL DISTRIBUTION WIDTH 18.4 % (11.6-14.6)
[2025-03-13 09:17] LABS: UREA NITROGEN BLOOD 35.0 mg/dL (9-23)
[2025-03-13 09:26] LABS: CREATININE 12.3 mg/dL (0.6-1.3)
[2025-03-13] MEDS ORDERED: AMOX1TAB16 MT (14:48)
== END 2025-03-13 19:32 | disposition home or self-care (01) | DRG 391 ==
LOC: ER 13:39 → 6WST 18:24 → EDBEDREQ 18:37 → EDBEDREQTM 18:37 → ENRESERV 19:03
PROVIDERS: ADMIT Family Medicine Adult Medicine; ATTEND Family Medicine Adult Medicine
PROC: 3E1M39Z Irrigation of Peritoneal Cavity using Dialysate, Percutaneous Approach (ICD-10-PCS; 2025-03-10)
PROC: 5A1D70Z Performance of Urinary Filtration, Intermittent, Less than 6 Hours Per Day (ICD-10-PCS; principal; 2025-03-13)
DX: K57.32 Diverticulitis of large intestine without perforation or abscess without bleeding (principal); N18.6 End stage renal disease; I13.2 Hypertensive heart and chronic kidney disease with heart failure and with stage 5 chronic kidney disease, or end stage renal disease; I48.0 Paroxysmal atrial fibrillation; I50.9 Heart failure, unspecified; E61.1 Iron deficiency; E78.5 Hyperlipidemia, unspecified; I25.10 Atherosclerotic heart disease of native coronary artery without angina pectoris; K76.89 Other specified diseases of liver; M48.061 Spinal stenosis, lumbar region without neurogenic claudication; G89.29 Other chronic pain; N40.0 Benign prostatic hyperplasia without lower urinary tract symptoms; K59.09 Other constipation; Z88.6 Allergy status to analgesic agent; Z86.73 Personal history of transient ischemic attack (TIA), and cerebral infarction without residual deficits; Z79.82 Long term (current) use of aspirin; Z79.899 Other long term (current) drug therapy; I25.2 Old myocardial infarction; Z79.01 Long term (current) use of anticoagulants; Z79.02 Long term (current) use of antithrombotics/antiplatelets; Z87.891 Personal history of nicotine dependence; Z99.2 Dependence on renal dialysis
CPT/HCPCS: 36415; 71045; 74018; 74176; 80048; 80053; 80061; 82607; 82728; 82746; 82962; 83540; 83550; 83735; 83880; 84443; 84484; 85025; 85044; 86705; 86709; 87340; 90935; 90945; 93005; 93306; 96374; 96375; 99285; A4606; J0696; J2270; J2405; J2470; J3490